=== PATIENT | female | born 1995 | race Caucasian/White ===

== ENCOUNTER 2020-07-31 01:31 | Emergency (ER) | payer OTHER ==
[~2020-07-31 01:31] MED LIST: AUGMENTIN 875-1 EACH PO; IBUPROFEN600 MG PO; KEFLEX500 MG PO; MONISTAT PV; MYLICON DR40 MG/0.6 PO; OMNICEF 300 MG300 MG PO; PRENATAL VITAM1 EAC6 PO; PROTONIX40 MG PO; PROVENTIL HFA6.7 GM INH; STOOL SOFTENER100 M1 PO; TESSALON PERLE100 MG PO; VAG PV; ZITHROMAX250 MG PO; ZOFRAN4 MG PO
[2020-07-31 02:23] LABS: HEMOGLOBIN 12.7 gm/dl (12.3-15.3); RED BLOOD COUNT 4.12 M/UL (4.00-5.10); WHITE BLOOD COUNT 6.4 K/UL (4.5-11.0)
[2020-07-31 02:53] LABS: BUN/CREATININE RATIO 10 (0-10)
[2020-07-31] MEDS ORDERED: PERCOCET 5-3251 EACH PO (03:15)
== END 2020-07-31 03:43 | disposition home or self-care (01) ==
LOC: ER1 01:31
PROVIDERS: Family Medicine
DX: N20.0 Calculus of kidney (principal); F17.210 Nicotine dependence, cigarettes, uncomplicated
CPT/HCPCS: 80053; 81001; 83690; 84703; 85025; 99284

== ENCOUNTER 2020-08-23 16:26 | Emergency (ER) | payer OTHER ==
[~2020-08-23 16:26] MED LIST changes: +PERCOCET 5-3251 EACH PO
[2020-08-23 17:31] LABS: HEMOGLOBIN 14.1 gm/dl (12.3-15.3); RED BLOOD COUNT 4.57 M/UL (4.00-5.10)
[2020-08-23 17:59] LABS: WHITE BLOOD COUNT 34.2 K/UL (4.5-11.0)
[2020-08-23 20:12] LABS: CRYPTOCOCCUS NEOFORMANS/GATTII Not Detected (Negative); CYTOMEGALOVIRUS Not Detected (Negative); ENTEROVIRUS Not Detected (Negative); ESCHERICHIA COLI K1 Not Detected (Negative); HAEMOPHILUS INFLUENZAE Not Detected (Negative); HERPES SIMPLEX VIRUS 1 Not Detected (Negative); HERPES SIMPLEX VIRUS 2 Not Detected (Negative); HUMAN HERPESVIRUS 6 Not Detected (Negative); HUMAN PARECHOVIRUS Not Detected (Negative); LISTERIA MONOCYTOGENES Not Detected (Negative); NEISERRIA MENINGITIDIS Not Detected (Negative); STREPTOCOCCUS AGALACTIAE Not Detected (Negative); STREPTOCOCCUS PNEUMONIAE Not Detected (Negative); VARICELLA ZOSTER VIRUS Not Detected (Negative)
[2020-08-23 20:39] LABS: GLUCOSE,CSF 70 mg/dL (50-80); TOTAL PROTEIN,CSF 29 mg/dL (20-45)
== END 2020-08-23 21:10 | disposition short-term general hospital (02) ==
LOC: ER1 16:26
PROVIDERS: Emergency Medicine
DX: G93.40 Encephalopathy, unspecified (principal); J96.00 Acute respiratory failure, unspecified whether with hypoxia or hypercapnia; Z87.442 Personal history of urinary calculi; Z20.822 Contact with and (suspected) exposure to COVID-19
CPT/HCPCS: 31500; 36600; 51702; 70450; 71045; 80053; 80307; 81001; 82803; 82945; 83605; 83735; 84100; 84157; 84703; 85025; 87040; 87070; 87086; 87205; 87483; 89051; 93005; 94002; 96365; 96366; 96375; 99285; J0696; J3370; J7030; U0002

== ENCOUNTER 2021-01-29 16:14 | Emergency (ER) | payer OTHER ==
[~2021-01-29] VITALS: Ht 162.6 cm; Wt 68.9 kg
[2021-01-29] MEDS ORDERED: IBUPROFEN600 MG PO (21:31)
== END 2021-01-29 22:33 | disposition home or self-care (01) ==
LOC: ER1 16:14
DX: S93.401A Sprain of unspecified ligament of right ankle, initial encounter (principal); X50.1XXA Overexertion from prolonged static or awkward postures, initial encounter
CPT/HCPCS: 73590; 73610; 99283

== ENCOUNTER → 2021-04-24 | Outpatient (CLI) | payer OTHER | LOC: KOH-I 15:36 | DX: M25.511 Pain in right shoulder (principal) | CPT/HCPCS: 73030 ==

== ENCOUNTER → 2021-06-12 | Outpatient (CLI) | payer OTHER | LOC: KOH-I 12:21 | DX: M45.1 Ankylosing spondylitis of occipito-atlanto-axial region (principal); S33.6XXS Sprain of sacroiliac joint, sequela; M53.3 Sacrococcygeal disorders, not elsewhere classified | CPT/HCPCS: 72170; 72202 ==

== ENCOUNTER 2021-11-16 16:01 | Emergency (ER) | payer OTHER | END 2021-11-16 17:49 | disposition left against medical advice (07) | LOC: ER1 16:01 | DX: Z53.21 Procedure and treatment not carried out due to patient leaving prior to being seen by health care provider (principal) ==

== ENCOUNTER → 2021-12-26 | Outpatient (CLI) | payer OTHER | LOC: US 12-20 10:00 | DX: R10.9 Unspecified abdominal pain (principal) ==

== ENCOUNTER → 2022-01-08 | Outpatient (CLI) | payer OTHER | END | disposition home or self-care (01) | LOC: WCC 07:23 | DX: L89.893 Pressure ulcer of other site, stage 3 (principal); M21.379 Foot drop, unspecified foot; G93.1 Anoxic brain damage, not elsewhere classified; I25.2 Old myocardial infarction; G40.89 Other seizures; G99.0 Autonomic neuropathy in diseases classified elsewhere; Z74.09 Other reduced mobility ==

== ENCOUNTER → 2022-01-15 | Outpatient (CLI) | payer OTHER | LOC: WCC 07:38 | DX: L89.893 Pressure ulcer of other site, stage 3 (principal); G93.1 Anoxic brain damage, not elsewhere classified; M21.379 Foot drop, unspecified foot; I25.2 Old myocardial infarction; G40.89 Other seizures; G99.0 Autonomic neuropathy in diseases classified elsewhere; Z74.09 Other reduced mobility; Z72.0 Tobacco use ==